=== PATIENT | male | born 1955 | race Caucasian/White ===

== ENCOUNTER 2022-03-15 21:28 | Inpatient (IN) | payer MEDICARE, OTHER ==
[~2022-03-15] VITALS: Ht 170.2 cm; Wt 86.6 kg
[~2022-03-15 21:28] MED LIST: ASPI-1444 PO; INSLAN SQ; INSU100V SQ; MAGN400T57 PO; METO25XL PO; PANT-31 PO; SUCR1ORA15 PO
[2022-03-15 23:23] LABS: BASOPHILS % (AUTO) 0.7 % (0.0-2.0); EOSINOPHILS % (AUTO) 2.1 % (1.0-6.0); HEMATOCRIT 26.4 % (41-53); HEMOGLOBIN 7.6 g/dL (13.5-17.5); LYMPHOCYTES # (AUTO) 0.8 K/uL (1.0-4.8); LYMPHOCYTES % (AUTO) 5.9 % (22.0-44.0); MEAN CORPUSCULAR HEMOGLOBIN 21.4 pg (26.0-34.0); MEAN CORPUSCULAR VOLUME 74 fL (80-100); MONOCYTES # (AUTO) 1.3 K/uL (0.1-1.0); MONOCYTES % (AUTO) 9.2 % (2.0-9.0); NEUTROPHILS # (AUTO) 11.6 K/uL (1.8-7.7); NEUTROPHILS % (AUTO) 82.1 % (40.0-70.0); PLATELET COUNT (AUTO) 386 K/uL (150-450); RED BLOOD CELL COUNT(AUTO) 3.57 MIL/uL (4.50-5.90); RED CELL DISTRIBUTION WIDTH 21.7 % (11.5-14.5)
[2022-03-15 23:32] LABS: CALCIUM, TOTAL 8.7 mg/dL (8.8-10.5); CREATININE 1.37 mg/dL (0.60-1.30); POTASSIUM 4.5 mmol/L (3.5-5.1)
[2022-03-15 23:36] LABS: INR 1.2 (0.9-1.1); PROTHROMBIN TIME 12.5 SEC (9.4-11.6)
[2022-03-15 23:38] LABS: ALBUMIN 2.7 g/dL (3.4-5.0); BILIRUBIN,TOTAL 0.7 mg/dL (0.1-1.0); TOTAL PROTEIN, SERUM 6.3 g/dL (6.4-8.2)
[2022-03-15 23:43] LABS: PLATELET MORPHOLOGY COMMENT LARGE PLTS PRESENT
[2022-03-15] MEDS ORDERED: NITROGLYCERIN 2% (1 GM=INCH) OINTMENT PACKET TP ONE (23:45)
[2022-03-16] MEDS ORDERED: FUROSEMIDE 40 MG/4 ML VIAL IVP ONE (00:30)
[2022-03-16 01:57] LABS: COVID AG,FIA SOURCE NASAL SWAB
[2022-03-16 03:22] LABS: APPEARANCE,URINE CLEAR (CLEAR); BILIRUBIN,URINE NEGATIVE (NEGATIVE); GLUCOSE, URINE (UA) NEGATIVE (NEGATIVE); KETONES,URINE NEGATIVE (NEGATIVE); LEUKOCYTE ESTERASE ,URINE LARGE (NEGATIVE); NITRATE,URINE NEGATIVE (NEGATIVE); OCCULT BLOOD,URINE NEGATIVE (NEGATIVE); PH,URINE 5.5 (5.0-8.0); PROTEIN,URINE TRACE mg/dL (NEGATIVE); UROBILINOGEN,URINE <=1.0 mg/dL (<=1.0)
[2022-03-16 03:54] LABS: BACTERIA,URINE Few /HPF (None Seen); RBC,URINE 0-2 /HPF (0-2); SQUAMOUS EPITHELIAL CELL,UR Few /LPF (None Seen); WBC,URINE 51-100 /HPF (0-5); YEAST,URINE Many /HPF (None Seen)
[2022-03-16] MEDS ORDERED: MORPHINE SULFATE 2 MG/ML SYRINGE IVP PRN (06:30)
[2022-03-16] MEDS ORDERED: ACETAMINOPHEN 325 MG TABLET PO PRN (06:30)
[2022-03-16] MEDS ORDERED: MAGNESIUM HYDROXIDE SUSPENSION 30 ML UDCUP PO PRN (06:30)
[2022-03-16] MEDS ORDERED: ONDANSETRON HCL 4 MG/2 ML VIAL IVP PRN (06:30)
[2022-03-16] MEDS ORDERED: HYDROCODONE/ACETAMINOPHEN 5-325 MG TABLET PO PRN (06:30)
[2022-03-16] MEDS ORDERED: BISACODYL 10 MG RECTAL RECTAL SUPPOSITORY PR PRN (06:30)
[2022-03-16] MEDS ORDERED: PANTOPRAZOLE SODIUM 40 MG DR TABLET PO SCH (09:00)
[2022-03-16] MEDS: DOCUSATE SODIUM 100 MG CAPSULE PO SCH ×2 (09:00→21:05)
[2022-03-16] MEDS: FUROSEMIDE 20 MG/2 ML VIAL IVP SCH ×2 (09:02→21:05)
[2022-03-16] MEDS: ATORVASTATIN CALCIUM 40 MG TABLET PO SCH (09:02)
[2022-03-16] MEDS: ASPIRIN 81 MG DR TABLET PO SCH (09:03)
[2022-03-16] MEDS: METOPROLOL SUCCINATE 25 MG ER TABLET PO SCH (09:33)
[2022-03-16] MEDS: INSULIN GLARGINE,HUM.REC.ANLOG 100 UNITS/ML SQ SCH ×2 (09:45→21:06)
[2022-03-16 11:51] LABS: GLUCOSE,POINT OF CARE 169 MG/DL (70-110)
[2022-03-16 13:20] VITALS: BP 130/73
[2022-03-16 15:27] VITALS: BP 119/73
[2022-03-16] MEDS ORDERED: INSULIN REGULAR, HUMAN 100 UNITS/ML SQ PRN (18:00)
[2022-03-16] MEDS ORDERED: DEXTROSE 50%-WATER 25 GM/50 ML SYRINGE IVP PRN (18:00)
[2022-03-16 20:10] VITALS: BP 136/88
[2022-03-16] MEDS: PANTOPRAZOLE SODIUM 40 MG DR TABLET PO SCH (21:04)
[2022-03-16] MEDS: ZOLPIDEM TARTRATE 5 MG TABLET PO PRN (21:05)
[2022-03-16 21:17] LABS: GLUCOMETER DEV NAME(LOC) 5S.1B; GLUCOSE,POINT OF CARE 237 MG/DL (70-110)
[2022-03-17 00:05] VITALS: BP 127/59
[2022-03-17 04:05] VITALS: BP 139/76
[2022-03-17 05:55] LABS: EOSINOPHILS % (AUTO) 3.7 % (1.0-6.0); HEMATOCRIT 23.9 % (41-53); HEMOGLOBIN 7.2 g/dL (13.5-17.5); LYMPHOCYTES # (AUTO) 1.1 K/uL (1.0-4.8); LYMPHOCYTES % (AUTO) 8.9 % (22.0-44.0); MEAN CORPUSCULAR HEMOGLOBIN 21.8 pg (26.0-34.0); MEAN CORPUSCULAR VOLUME 73 fL (80-100); MONOCYTES # (AUTO) 1.3 K/uL (0.1-1.0); MONOCYTES % (AUTO) 10.5 % (2.0-9.0); NEUTROPHILS # (AUTO) 9.1 K/uL (1.8-7.7); NEUTROPHILS % (AUTO) 75.9 % (40.0-70.0); PLATELET COUNT (AUTO) 313 K/uL (150-450); RED BLOOD CELL COUNT(AUTO) 3.28 MIL/uL (4.50-5.90); RED CELL DISTRIBUTION WIDTH 21.6 % (11.5-14.5)
[2022-03-17 06:13] LABS: CALCIUM, TOTAL 8.3 mg/dL (8.8-10.5); CREATININE 1.43 mg/dL (0.60-1.30); POTASSIUM 3.4 mmol/L (3.5-5.1)
[2022-03-17 07:36] VITALS: BP 136/74
[2022-03-17] MEDS: METOPROLOL SUCCINATE 25 MG ER TABLET PO SCH (08:36)
[2022-03-17] MEDS: PANTOPRAZOLE SODIUM 40 MG DR TABLET PO SCH ×2 (08:36→20:34)
[2022-03-17] MEDS: ATORVASTATIN CALCIUM 40 MG TABLET PO SCH (08:37)
[2022-03-17] MEDS: ASPIRIN 81 MG DR TABLET PO SCH (08:37)
[2022-03-17] MEDS: DOCUSATE SODIUM 100 MG CAPSULE PO SCH ×2 (08:39→20:23)
[2022-03-17] MEDS: INSULIN GLARGINE,HUM.REC.ANLOG 100 UNITS/ML SQ SCH ×2 (08:51→20:36)
[2022-03-17] MEDS: FUROSEMIDE 20 MG TABLET PO SCH (09:00)
[2022-03-17] MEDS ORDERED: POTASSIUM CHLORIDE 10 MEQ ER TABLET PO ONE (09:15)
[2022-03-17 11:28] VITALS: BP 135/75
[2022-03-17 12:31] LABS: GLUCOMETER DEV NAME(LOC) 5S.1B; GLUCOSE,POINT OF CARE 103 MG/DL (70-110)
[2022-03-17] MEDS ORDERED: DOCU-385 PO (13:53)
[2022-03-17] MEDS ORDERED: METO-408 PO (13:56)
[2022-03-17] MEDS ORDERED: LOSA-381 PO (13:56)
[2022-03-17 15:44] VITALS: BP 126/71
[2022-03-17 17:47] LABS: GLUCOMETER DEV NAME(LOC) 5S.1B; GLUCOSE,POINT OF CARE 193 MG/DL (70-110)
[2022-03-17 17:56] LABS: GLUCOMETER DEV NAME(LOC) 5S.2B; GLUCOSE,POINT OF CARE 227 MG/DL (70-110)
[2022-03-17 20:16] LABS: GLUCOMETER DEV NAME(LOC) 5S.1B; GLUCOSE,POINT OF CARE 129 MG/DL (70-110)
[2022-03-17] MEDS: ZOLPIDEM TARTRATE 5 MG TABLET PO PRN (20:34)
[2022-03-18 01:16] VITALS: BP 129/68
[2022-03-18 06:21] VITALS: BP 130/69
[2022-03-18 08:00] VITALS: BP 132/72
[2022-03-18] MEDS ORDERED: LOSARTAN POTASSIUM 25 MG TABLET PO SCH (09:00)
[2022-03-18] MEDS: DOCUSATE SODIUM 100 MG CAPSULE PO SCH (09:00)
[2022-03-18] MEDS: FUROSEMIDE 20 MG TABLET PO SCH (09:01)
[2022-03-18] MEDS: METOPROLOL SUCCINATE 25 MG ER TABLET PO SCH (09:01)
[2022-03-18] MEDS: ASPIRIN 81 MG DR TABLET PO SCH (09:01)
[2022-03-18] MEDS: PANTOPRAZOLE SODIUM 40 MG DR TABLET PO SCH (09:01)
[2022-03-18] MEDS: ATORVASTATIN CALCIUM 40 MG TABLET PO SCH (09:01)
[2022-03-18] MEDS: INSULIN GLARGINE,HUM.REC.ANLOG 100 UNITS/ML SQ SCH (09:05)
[2022-03-18 19:42] LABS: GLUCOMETER DEV NAME(LOC) 5S.2B; GLUCOSE,POINT OF CARE 120 MG/DL (70-110)
[2022-03-18 19:42] LABS: GLUCOMETER DEV NAME(LOC) 5S.2B; GLUCOSE,POINT OF CARE 139 MG/DL (70-110)
== END 2022-03-18 10:05 | DRG 377 ==
LOC: EMS 21:29 → 5S 03-16 12:00
PROVIDERS: ADMIT Internal Medicine; ATTEND Internal Medicine
DX: K92.2 Gastrointestinal hemorrhage, unspecified (principal); I50.43 Acute on chronic combined systolic (congestive) and diastolic (congestive) heart failure; I13.0 Hypertensive heart and chronic kidney disease with heart failure and stage 1 through stage 4 chronic kidney disease, or unspecified chronic kidney disease; N17.9 Acute kidney failure, unspecified; E11.22 Type 2 diabetes mellitus with diabetic chronic kidney disease; E11.51 Type 2 diabetes mellitus with diabetic peripheral angiopathy without gangrene; E66.01 Morbid (severe) obesity due to excess calories; E78.00 Pure hypercholesterolemia, unspecified; I25.10 Atherosclerotic heart disease of native coronary artery without angina pectoris; D64.9 Anemia, unspecified; I48.0 Paroxysmal atrial fibrillation; I25.5 Ischemic cardiomyopathy; F32.A Depression, unspecified; N18.30 Chronic kidney disease, stage 3 unspecified; R09.02 Hypoxemia; Z66 Do not resuscitate; Z20.822 Contact with and (suspected) exposure to COVID-19; Z79.4 Long term (current) use of insulin; Z79.899 Other long term (current) drug therapy; I25.2 Old myocardial infarction; Z87.19 Personal history of other diseases of the digestive system; Z89.511 Acquired absence of right leg below knee; Z68.29 Body mass index [BMI] 29.0-29.9, adult
CPT/HCPCS: 71045; 80048; 80053; 81001; 82271; 82550; 82962; 83605; 83880; 84484; 85025; 85610; 85730; 87040; 87086; 87186; 93005; 93306; 93971; 99291; J1815; J1940; 36415-L1; 36415-TC